=== PATIENT | female | born 1980 | race Caucasian/White ===

== ENCOUNTER 2021-02-14 07:57 | Outpatient (CLI) | payer MEDICAID, SELFPAY ==
--- NOTE | 2021-02-14 08:22 | MR_ITS ---
WS: [id number] MRI THORACIC SPINE WITHOUT CONTRAST TECHNIQUE: Sagittal T1, T2 and STIR imaging. Axial T2 imaging. Noncontrast imaging obtained. CLINICAL INFORMATION: NUMBNESS AND TINGLING IN RIGHT HAND COMPARISON: None. FINDINGS: Mild thoracic curve. No acute compression. No high-grade central canal stenosis. Cord signal is aravind l. Normal paravertebral soft tissues. Mild disc desiccation in the lower thoracic spine. Disc space n arrowing worse at T11-T12 and T12-L1. Mild chronic compression superior endplate T12. Small central protrusionscout imaging at C5-C6 with mild to moderate central canal stenosis. Tiny central disc protrusion at T6-T7. Small left pericentral protrusion at T11-T12.Moderate facet ar thropathy lower thoracic spine. Normal visualized thoracic aorta. MR/MR thoracic spin wo con* [id number] IMPRESSION: 1. Mild thoracic curve. No acute compression. No high-grade central canal sten osis. 2. Thoracic cord signal is normal. 3. Tiny central protrusion at T6-T7. 4. Small left pericentral protrusion at T11-T12. 5. Moderate facet arthropathy lower thoracic spine. 6. Mild to moderate central canal stenosis in the cervical spine on the maintenance truck driver imaging due to central disc protrusion at C5-C6. This can be further evaluated with cervical spine MRI.
== END 2021-02-14 07:58 | disposition home or self-care (01) ==
LOC: RADWPI 08:00
PROVIDERS: PCP Registered Nurse; Visit Provider Registered Nurse
DX: R20.0 Anesthesia of skin (principal); R20.2 Paresthesia of skin; R29.898 Other symptoms and signs involving the musculoskeletal system; M54.14 Radiculopathy, thoracic region; M48.02 Spinal stenosis, cervical region; M47.814 Spondylosis without myelopathy or radiculopathy, thoracic region; M51.24 Other intervertebral disc displacement, thoracic region
CPT/HCPCS: 72146

== ENCOUNTER → 2024-04-06 15:58 | Outpatient (BNVA) | payer MEDICAID, SELFPAY | PROVIDERS: PCP Registered Nurse; Visit Provider Orthopaedic Surgery | DX: M54.9 Dorsalgia, unspecified (principal); M54.2 Cervicalgia | CPT/HCPCS: 72050; 72070; 72110 ==